=== PATIENT | male | born 1960 ===

== ENCOUNTER 2019-10-20 16:10 | Emergency (ER) | payer SELFPAY ==
[~2019-10-20] VITALS: Ht 172.7 cm; Wt 139.9 kg
[2019-10-20 16:19] VITALS: BP 171/99
[2019-10-20] MEDS ORDERED: KETOROLAC 30 MG/1 ML IM ONE (19:30)
[2019-10-20] MEDS ORDERED: KETOROLAC 30 MG/1 ML ONE (19:38)
--- NOTE | 2019-10-20 19:44 | NUR ---
THIS PT IS HERE FOR A REFERAL TO DO MORE THAN X-RAYS THAT HE'S ALREADY HAD "I'M NOT FROM HERE SO I NEED SOMETHING IN [facility]." PT HAS FILED A REPORT WITH THE POLICE ALREADY. PT SITTING IN CHAIR NO SIGNS OF DISTRESS, REPIRATIONS EVEN AND UNLABORED.
--- NOTE | 2019-10-20 19:53 | NUR ---
PATIENT REQUESTED REFERRAL FOR MD [facility] IN [facility]; SPOKE WITH PROVIDER. PATIENT'S REFERRAL IS TO [facility] IN [place].
== END 2019-10-20 19:58 | disposition home or self-care (01) ==
LOC: ED 17:10
DX: S16.1XXA Strain of muscle, fascia and tendon at neck level, initial encounter (principal); M25.562 Pain in left knee; M54.5 Low back pain; Y08.89XA Assault by other specified means, initial encounter; Y93.89 Activity, other specified; Y92.009 Unspecified place in unspecified non-institutional (private) residence as the place of occurrence of the external cause; Y99.8 Other external cause status
CPT/HCPCS: 72125; 96372; 99284; J1885; 99283